=== PATIENT | female | born 1945 | race Caucasian/White ===

== ENCOUNTER 2022-06-15 11:24 | Day surgery (SDC) | payer MEDICARE, MEDICAID ==
[~2022-06-15] VITALS: Ht 165.1 cm; Wt 81.7 kg
[~2022-06-15 11:24] MED LIST: AMLO-258 PO; ASPI-1444 PO; CALC-1124 PO; CHOL25TA4 PO; DOCU-385 PO; LOSA-382 PO; MELO-381 PO; MULT-1251 PO; OMEP20 PO; SODIUM CHLORIDE 0.9% 1,000 ML ONE
[2022-06-15] MEDS ORDERED: SODIUM CHLORIDE 0.9% 1,000 ML IV ONE (11:30)
[2022-06-15] MEDS ORDERED: ASPIRIN 81 MG CHEWABLE TABLET ONE (12:21)
[2022-06-15] MEDS ORDERED: DiphenhydrAMINE HCL 50 MG CAPSULE ONE (12:21)
[2022-06-15] MEDS ORDERED: DIAZEPAM 5 MG TABLET ONE (12:21)
[2022-06-15] MEDS ORDERED: DIAZEPAM 5 MG TABLET PO ONE (13:30)
[2022-06-15] MEDS ORDERED: ASPIRIN 81 MG CHEWABLE TABLET PO ONE (13:30)
[2022-06-15] MEDS ORDERED: DiphenhydrAMINE HCL 50 MG CAPSULE PO ONE (13:30)
[2022-06-15 14:53] VITALS: BP 166/84
[2022-06-15] MEDS ORDERED: FentaNYL CITRATE PF 100 MCG/2 ML VIAL ONE (14:57)
[2022-06-15] MEDS ORDERED: MIDAZOLAM HCL 2 MG/2 ML VIAL ONE (14:58)
[2022-06-15] MEDS ORDERED: 0.9% SODIUM CHLORIDE 10 ML SYRINGE IVP ONE (15:35)
[2022-06-15] MEDS ORDERED: MIDAZOLAM HCL 2 MG/2 ML VIAL IVP ONE (15:45)
[2022-06-15] MEDS ORDERED: HEPARIN SODIUM 1000 UNITS/NS 1,000 ML IARTER ONE (15:45)
[2022-06-15] MEDS ORDERED: IOHEXOL 300 MG/ML 100 ML VIAL IARTER ONE (15:45)
[2022-06-15] MEDS ORDERED: FentaNYL CITRATE PF 100 MCG/2 ML VIAL IVP ONE (15:45)
[2022-06-15] MEDS ORDERED: LIDOCAINE 1% 30 ML/SOD BICARB 8.4% 4 ML SQ ONE (15:45)
[2022-06-15 15:48] VITALS: BP 155/84
[2022-06-15] MEDS ORDERED: TICAGRELOR 90 MG TABLET PO ONE (17:30)
== END 2022-06-15 19:00 | disposition home or self-care (01) ==
LOC: CATHLAB 11:24
PROVIDERS: ATTEND Internal Medicine Interventional Cardiology
DX: R94.39 Abnormal result of other cardiovascular function study (principal); I10 Essential (primary) hypertension; E11.9 Type 2 diabetes mellitus without complications; Z86.73 Personal history of transient ischemic attack (TIA), and cerebral infarction without residual deficits; E66.01 Morbid (severe) obesity due to excess calories; Z98.890 Other specified postprocedural states; Z79.899 Other long term (current) drug therapy
CPT/HCPCS: 93458; 99152; 93005; C1760; J3010; J2250; J7030